=== PATIENT | male | born 1950 | race Caucasian/White ===

== ENCOUNTER 2016-07-18 18:15 | Inpatient (IN) | payer MEDICARE, BC ==
[~2016-07-18] VITALS: Ht 177.8 cm; Wt 102.5 kg
[~2016-07-18 18:15] MED LIST changes: -XARELTO15 MG PO; -XARELTO20 MG PO
[2016-07-18 19:01] LABS: BASO # 0.1 (0.0-0.2); BASO % 0.6 % (0.0-2.0); EOS # 0.7 (0.0-0.7); EOS % 7.3 % (0-4.0); GRAN % 70.4 % (42.2-75.2); HEMATOCRIT 44.8 % (42.0-52.0); HEMOGLOBIN 15.3 g/dl (13.5-18.0); LYMPH # 1.5 (1.2-3.4); LYMPH % 14.7 % (20.0-51.0); MEAN CELL VOLUME 94 fl (80.0-100.0); MEAN CORPUSCULAR HEMOGLOBIN 32 pg (27.0-31.0); MEAN CORPUSCULAR HGB CONC 34 g/dl (33.0-37.0); MEAN PLATELET VOLUME 9.9 fl (7.4-10.4); MONO # 0.7 (0.1-0.6); MONO % 6.6 % (1.7-9.3); PLATELET COUNT 200 K/mm3 (130-400); RED BLOOD COUNT 4.79 M/mm3 (4.20-5.60); REDCELL DISTRIBUTION WIDTH-CV 13.1 % (11.5-14.5); WHITE BLOOD COUNT 9.9 K/mm3 (4.8-10.8)
[2016-07-18 19:13] LABS: PARTIAL THROMBOPLASTIN TIME 28.9 SECONDS (26.0-37.0)
[2016-07-18 19:19] LABS: INR 1.1 (0.8-3.0); PROTHROMBIN TIME 12.2 SECONDS (9.7-12.8)
[2016-07-18 19:27] LABS: ADJUSTED CALCIUM 9.4 mg/dL (8.4-10.2); ALANINE AMINOTRANSFERASE 36 U/L (21-72); ALBUMIN 4.5 gm/dL (3.5-5.0); ALKALINE PHOSPHATASE 67 U/L (50-136); ANION GAP 12 mmol/L (7-16); BILIRUBIN,TOTAL 0.8 mg/dL (0.0-1.0); BLOOD UREA NITROGEN 19 mg/dL (9-20); CALCIUM 9.8 mg/dL (8.4-10.2); CARBON DIOXIDE 28 mmol/L (22-30); CHLORIDE 100 mmol/L (98-107); CREATININE, serum 0.86 mg/dL (0.66-1.25); GLUCOSE 175 mg/dL (74-106); POTASSIUM 4.2 mmol/L (3.4-5.0); SODIUM 139 mmol/L (137-145)
[2016-07-18 19:42] LABS: B-TYPE NATRIURETIC PEPTIDE 411 pg/mL (0-125)
[2016-07-18 19:43] LABS: TROPONIN-I < 0.012 ng/mL (0.000-0.034)
[2016-07-18 21:48] VITALS: BP 146/79; PULSE 66; TEMP 98.5
[2016-07-19 04:04] VITALS: BP 124/64; PULSE 63; TEMP 98.7
[2016-07-19 09:51] VITALS: BP 152/84; PULSE 70; TEMP 98.2
[2016-07-19 11:41] VITALS: BP 141/83; PULSE 71; TEMP 98
[2016-07-19 14:52] LABS: ARTERIAL BLD GAS O2 SATURATION 91.9 % (92-100); ARTERIAL BLOOD GAS BASE EXCESS 0.7 (-2-2); ARTERIAL BLOOD GAS HCO3 24.4 meq/L (22-26); ARTERIAL BLOOD GAS pH 7.45 (7.35-7.45)
[2016-07-19 14:53] LABS: ALLEN TEST YES; ALLENS TEST RESULT PASS; ATS? YES
[2016-07-19 15:52] VITALS: BP 129/75; PULSE 71; TEMP 99
[2016-07-19 20:38] VITALS: BP 144/80; PULSE 74; TEMP 98.2
[2016-07-19 23:53] VITALS: BP 136/85; PULSE 65; TEMP 98.1
[2016-07-20 02:40] VITALS: BP 126/81; PULSE 61; TEMP 97.2
[2016-07-20 07:31] VITALS: BP 125/73; PULSE 71; TEMP 98.6
[2016-07-20 11:32] VITALS: BP 124/74; PULSE 77; TEMP 98
[2016-07-20 16:31] VITALS: BP 127/68; PULSE 74; TEMP 98.3
[2016-07-20 19:34] VITALS: BP 140/73; PULSE 73; TEMP 98.6
[2016-07-21 00:16] VITALS: BP 128/79; PULSE 69; TEMP 97.7
[2016-07-21 04:21] VITALS: BP 123/82; PULSE 62; TEMP 98.2
[2016-07-21 07:45] VITALS: BP 113/78; PULSE 71; TEMP 98.4
[2016-07-21 08:44] LABS: FACTOR V LEIDEN MUTATION B Negative (Negative)
[2016-07-21 08:45] LABS: PT G20210A MUTATION B Negative (Negative)
[2016-07-21 11:25] VITALS: BP 119/68; PULSE 73; TEMP 97.3
[2016-07-21] MEDS ORDERED: XARELTO15 MG PO (13:45)
[2016-07-21] MEDS ORDERED: XARELTO20 MG PO (13:46)
[2016-07-21 15:22] LABS: .ANTICARDIOLIPIN IGG <9.4 GPL (()); .ANTICARDIOLIPIN IGM 12.5 MPL (())
[2016-07-22 09:32] LABS: PROTEIN C ACTIVITY 82 % (70-150)
[2016-07-22 09:36] LABS: PROTEIN S ACTIVITY 100 % (65-149)
[2016-07-22 09:38] LABS: LUPUS ANTICOAGULANT PT 11.5 sec (()); LUPUS ANTICOAGULANT PTT 33 sec (26 - 36)
[2016-07-22 10:07] LABS: LUPUS ANTICOAGULANT DRVVT 0.9 ratio (())
== END 2016-07-21 15:00 | disposition home or self-care (01) | DRG 176 ==
LOC: COL.ER 18:15 → MEDICAL 20:48
PROVIDERS: Emergency Medicine; Internal Medicine; Internal Medicine Cardiovascular Disease
DX: I26.99 Other pulmonary embolism without acute cor pulmonale (principal); I82.512 Chronic embolism and thrombosis of left femoral vein; I82.532 Chronic embolism and thrombosis of left popliteal vein; G47.33 Obstructive sleep apnea (adult) (pediatric); I10 Essential (primary) hypertension; E66.9 Obesity, unspecified; M17.0 Bilateral primary osteoarthritis of knee; R73.9 Hyperglycemia, unspecified; Z88.0 Allergy status to penicillin; Z68.32 Body mass index [BMI] 32.0-32.9, adult
CPT/HCPCS: 99223-AI; 99233-AI; 99239; J1650; Q9967

== ENCOUNTER → 2016-07-18 | Outpatient (CLI) | payer MEDICARE, BC ==
[~2016-07-18] MED LIST: BENICAR 20MG TA20 MG PO; COUMADIN 1010 MG/TAB PO; LOVENOX120 MG/0.8 SQ; MOTRIN 200200 MG/TAB PO; SINGULAIR 110 MG/TAB PO; XARELTO15 MG PO; XARELTO20 MG PO
== END ==
LOC: ZCOL.LAB 17:20
DX: R06.02 Shortness of breath (principal); R05 Cough

== ENCOUNTER → 2017-08-25 | Outpatient (CLI) | payer MEDICARE, BC ==
[~2017-08-25] MED LIST changes: +XARELTO15 MG PO; +XARELTO20 MG PO
== END ==
LOC: COL.RAD 10:31
DX: K57.30 Diverticulosis of large intestine without perforation or abscess without bleeding (principal); I51.7 Cardiomegaly; N28.1 Cyst of kidney, acquired; N40.0 Benign prostatic hyperplasia without lower urinary tract symptoms
CPT/HCPCS: Q9967

== ENCOUNTER 2018-07-24 07:37 | Day surgery (SDC) | payer MEDICARE, BC ==
[~2018-07-24] VITALS: Ht 175.3 cm; Wt 117.7 kg
[2018-07-24] MEDS ORDERED: GLUCOPHAGE XR500 M1 PO (07:53)
[2018-07-24] MEDS ORDERED: XARELTO20 MG PO (07:53)
[2018-07-24] MEDS ORDERED: MOTRIN 200200 MG/TAB PO (07:54)
[2018-07-24] MEDS ORDERED: NATURAL POTASS595 MG PO (07:55)
[2018-07-24] MEDS ORDERED: CALCIUM CARBON650 M2 PO (07:55)
[2018-07-24] MEDS ORDERED: OSTEO-BI-FLEX 21 TAB PO (07:56)
[2018-07-24] MEDS ORDERED: ZYRTEC 10MG10 MG PO (07:56)
[2018-07-24 08:32] VITALS: BP 135/82; PULSE 65; TEMP 98.1
[2018-07-24 09:15] VITALS: BP 120/79; PULSE 68; TEMP 98.2
--- NOTE | 2018-07-24 09:15 | NUR ---
Pt arrived to room from Endo procedure via cart. Pt A/Ox3. Standy by assist as pt walked to chair with steady gait. Report received from SUSAN Poon. VSS. pt request coffee and applesauce at this time. Call light in reach.
[2018-07-24 09:30] VITALS: BP 126/77; PULSE 63; TEMP 98.3
--- NOTE | 2018-07-24 09:35 | NUR ---
Pt tolerating sips of coffee. Denies any N/V at this time. Pt states Dr talked to him about the EGD findings. Pt's family in room at this time.
[2018-07-24 09:45] VITALS: BP 121/79; PULSE 70; TEMP 98.3
--- NOTE | 2018-07-24 09:50 | NUR ---
Pt given discharge paperwork and appointment card with Dr Ambriz. Answered all questions to pt's satisfaction. Pt given discharge instructions, med list, and procedure information. Pt signed paperwork. in room with pt.
--- NOTE | 2018-07-24 09:55 | NUR ---
Pt discharged from endo and left unit via wheelchair. Standy by assist pt to private vehicle driven by spouse.
== END 2018-07-24 09:55 | disposition home or self-care (01) ==
LOC: SDCO 07:37
DX: K22.2 Esophageal obstruction (principal); K29.31 Chronic superficial gastritis with bleeding; K44.9 Diaphragmatic hernia without obstruction or gangrene; K26.9 Duodenal ulcer, unspecified as acute or chronic, without hemorrhage or perforation; K29.80 Duodenitis without bleeding; E11.9 Type 2 diabetes mellitus without complications; Z79.84 Long term (current) use of oral hypoglycemic drugs; E78.5 Hyperlipidemia, unspecified; Z79.899 Other long term (current) drug therapy; Z86.718 Personal history of other venous thrombosis and embolism; Z86.711 Personal history of pulmonary embolism; Z79.01 Long term (current) use of anticoagulants
CPT/HCPCS: C1726; J2250; J3010; J7030

== ENCOUNTER 2018-11-20 18:13 | Outpatient (RCR) | payer MEDICARE, BC ==
[~2018-11-20] VITALS: Ht 175.3 cm; Wt 110.0 kg
[~2018-11-20 18:13] MED LIST changes: +CALCIUM CARBON650 M2 PO; +GLUCOPHAGE XR500 M1 PO; +NATURAL POTASS595 MG PO; +OSTEO-BI-FLEX 21 TAB PO; +ZYRTEC 10MG10 MG PO
[2018-11-20] MEDS ORDERED: COUMADIN 77.5 MG/TAB PO (18:54)
[2018-11-20] MEDS ORDERED: CLEOCIN HCL300 MG PO (18:55)
[2018-11-20] MEDS ORDERED: NORCO 325 MG-51 TAB PO (18:58)
[2018-11-20 18:59] VITALS: BP 130/64; PULSE 81; TEMP 99.2
[2018-11-20 19:07] LABS: HEMOGLOBIN 10.3 g/dl (13.5-18.0); MEAN CELL VOLUME 96 fl (80.0-100.0); MEAN CORPUSCULAR HEMOGLOBIN 33 pg (27.0-31.0); MEAN CORPUSCULAR HGB CONC 34 g/dl (33.0-37.0); MEAN PLATELET VOLUME 9.8 fl (7.4-10.4); PLATELET COUNT 266 K/mm3 (130-400); RED BLOOD COUNT 3.15 M/mm3 (4.20-5.60); REDCELL DISTRIBUTION WIDTH-CV 13.1 % (11.5-14.5)
[2018-11-20 19:14] LABS: CALCIUM 8.9 mg/dL (8.4-10.2); CREATININE, serum 0.81 (0.66-1.25); POTASSIUM 3.9 mmol/L (3.4-5.0)
[2018-11-20 19:17] LABS: HEMATOCRIT 30.1 % (42.0-52.0)
[2018-11-20] MEDS ORDERED: PRILOTC (19:34)
== END 2018-11-20 20:00 | disposition home or self-care (01) ==
LOC: EUO 18:13
PROVIDERS: Internal Medicine Interventional Cardiology
DX: R50.9 Fever, unspecified (principal)
CPT/HCPCS: A4216; J0696

== ENCOUNTER 2018-11-27 10:48 | Emergency (ER) | payer MEDICARE, BC ==
[~2018-11-27] VITALS: Ht 177.8 cm; Wt 108.2 kg
[~2018-11-27 10:48] MED LIST changes: +CLEOCIN HCL300 MG PO; +COUMADIN 77.5 MG/TAB PO; +NORCO 325 MG-51 TAB PO; +PRILOTC
[2018-11-27 11:01] VITALS: BP 121/80; TEMP 98.1
[2018-11-27] MEDS ORDERED: OMNICEF 300MG300 MG PO (11:10)
[2018-11-27] MEDS ORDERED: COUMADIN 5MG5 MG/TAB PO (11:10)
[2018-11-27] MEDS ORDERED: NEURONTIN300 MG/CAP PO (12:25)
[2018-11-27 12:35] LABS: BASO # 0.1 (0.0-0.2); BASO % 0.5 % (0.0-2.0); EOS # 0.2 (0.0-0.7); EOS % 2.3 % (0-4.0); GRAN # 7.4 (1.4-6.5); GRAN % 78.8 % (42.2-75.2); HEMATOCRIT 34.8 % (42.0-52.0); HEMOGLOBIN 11.5 g/dl (13.5-18.0); LYMPH # 1.1 (1.2-3.4); LYMPH % 11.3 % (20.0-51.0); MEAN CELL VOLUME 96 fl (80.0-100.0); MEAN CORPUSCULAR HEMOGLOBIN 32 pg (27.0-31.0); MEAN CORPUSCULAR HGB CONC 33 g/dl (33.0-37.0); MEAN PLATELET VOLUME 8.9 fl (7.4-10.4); MONO # 0.6 (0.1-0.6); MONO % 6.3 % (1.7-9.3); PLATELET COUNT 370 K/mm3 (130-400); RED BLOOD COUNT 3.63 M/mm3 (4.20-5.60); REDCELL DISTRIBUTION WIDTH-CV 13.2 % (11.5-14.5)
[2018-11-27 12:40] LABS: INR 1.9 (0.8-3.0); PROTHROMBIN TIME 22.8 SECONDS (9.7-12.8)
[2018-11-27 12:54] LABS: CALCIUM 9.3 mg/dL (8.4-10.2); CREATININE, serum 0.92 (0.66-1.25); POTASSIUM 4.1 mmol/L (3.4-5.0)
[2018-11-27 13:30] VITALS: PULSE 68
== END 2018-11-27 13:32 | disposition home or self-care (01) ==
LOC: COL.ER 10:48
PROVIDERS: Physician Assistant
DX: I82.402 Acute embolism and thrombosis of unspecified deep veins of left lower extremity (principal); M79.89 Other specified soft tissue disorders; Z79.01 Long term (current) use of anticoagulants

== ENCOUNTER → 2019-06-10 | Outpatient (CLI) | payer MEDICARE, BC ==
[~2019-06-10] MED LIST changes: +COUMADIN 5MG5 MG/TAB PO; +NEURONTIN300 MG/CAP PO; +OMNICEF 300MG300 MG PO
[2019-06-10 14:50] LABS: INR 1.5 (0.8-3.0); PROTHROMBIN TIME 18.3 SECONDS (9.7-12.8)
== END ==
LOC: COL.LAB 14:25
PROVIDERS: Orthopaedic Surgery
DX: Z79.01 Long term (current) use of anticoagulants (principal)